=== PATIENT | male | born 1955 | race Caucasian/White ===

== ENCOUNTER 2024-11-02 04:18 | Emergency (ER) | payer MEDICARE, SELFPAY ==
--- NOTE | 2024-11-02 04:31 | CT_ITS ---
PROCEDURE INFORMATION: Exam: CT Abdomen And Pelvis With Contrast Exam date and time: 11/02/2024 5:28 AM Age: 69 years old Clinical indication: Abdominal pain; Additional info: Llq pain TECHNIQUE: Imaging protocol: Computed tomography of the abdomen and pelvis with contrast. Radiation optimization: All CT scans at this facility use at least one of these dose optimization techniques: automated exposure control; mA and/or kV adjustment per patient size (includes targeted exams where dose is matched to clinical indication); or iterative reconstruction. Contrast material: ISOVUE; Contrast volume: 75 ml; Contrast route: IV; COMPARISON: No relevant prior studies available. FINDINGS: Liver: Normal. No mass. Gallbladder and biliary ducts: Normal. No calcified stones. No ductal dilation. Pancreas: Normal. No ductal dilation. Spleen: Normal. No splenomegaly. Adrenal glands: Normal. No mass. Kidneys and ureters: 4 mm stone in the mid left ureter with moderate left-sided hydronephrosis and hydroureter. 3 mm intrarenal stone is noted on the left. Stomach and bowel: Unremarkable. No obstruction. No mucosal thickening. Appendix: No evidence of appendicitis. Intraperitoneal space: Unremarkable. No free air. No significant fluid collection. Vasculature: Unremarkable. No abdominal aortic aneurysm. Lymph nodes: Unremarkable. No enlarged lymph nodes. Urinary bladder: Unremarkable as visualized. Reproductive: Unremarkable as visualized. Bones/joints: Unremarkable. No acute fracture. Soft tissues: Unremarkable. IMPRESSION: 4 mm stone in the mid left ureter with moderate left-sided hydronephrosis and hydroureter. 3 mm intrarenal stone is noted on the left.
[2024-11-02 04:33] VITALS: BP 216/97; PULSE 68; RESP 16; TEMP 36.4; O2SAT 98; BMI 28.2
--- NOTE | 2024-11-02 04:33 | ED_ITS ---
Discharge Plan Disposition Patient Disposition: Home, Self-Care Referrals Follow up/Referrals: Provider,Referral, [Primary Care Provider, Medical] - See instructions Instructions Patient Instructions: DI for Acute Abdominal Pain Discharge ED Provider: Danilo Smith General Adult HPI General Chief complaint: Abdominal Pain Stated complaint: lower L abd pain Time Seen by Provider: 11/02/24 04:20 History of Present Illness HPI narrative: 69-year-old male presents for acute onset severe left-sided lower quadrant abdominal pain. He reports that he felt like he had a little bit of pain in his kidney yesterday. Tonight he had acute severe left lower quadrant pain with associated nausea and vomiting. He has never had any like this before. Related Data Allergies Allergy/AdvReac Type Severity Reaction Status Date / Time No Known Allergies Allergy Verified 11/02/24 04:38 [facility] Disclaimer: The information contained in this section may have been updated after the patient was seen, as this information can be updated by other users. Social History Smoking Status: Never smoker ROS Obtained: Yes All systems reviewed & no additional complaints except as documented Physical Exam General General appearance: alert and in distress Head Head exam: atraumatic and normocephalic Eye Eye exam: Present normal appearance, PERRL and EOMI ENT ENT exam: Present normal oropharynx and normal external ear exam Neck Neck exam: Present normal inspection and full ROM Chest Chest inspection: Present normal inspection and symmetric chest wall rise; Absent tenderness Respiratory Respiratory exam: Present normal lung sounds bilaterally; Absent respiratory distress Cardiovascular Cardiovascular exam: Present regular rate and normal rhythm Abdominal Exam Abdominal exam: Present soft; Absent distention, tenderness or guarding Extremities Exam Extremities exam: Present normal inspection; Absent edema or joint swelling Back Exam Back exam: Present normal inspection; Absent tenderness Neurological Exam Neurological exam: Present alert and oriented X3; Absent motor sensory deficit Psychiatric Psychiatric exam: Present normal affect and normal mood Skin Skin exam: Present warm, dry and normal color Lymphatic Lymphatic Findings: no adenopathy Medical Decision Making Medical Records Medical records reviewed: Yes I reviewed the patient's medical records. Screening: Per USPSTF and CDC recommendations, given the prevalence of disease in our region, it is our hospital?s policy to screen for HIV and viral Hepatitis for all patients aged 18 and over and those with ongoing risk factors. Leonard Inquiry Pt receiving controlled substance: No Leonard was queried for this patient: No Vital Signs: 11/02/24 04:33 11/02/24 05:09 11/02/24 05:20 Temperature 97.6 F Temperature Source Oral Pulse Rate 68 70 Pulse Rate [Right Radial] 68 Respiratory Rate 16 Blood Pressure 176/86 H 167/75 H Blood Pressure [Right Arm] 216/97 H Blood Pressure Mean [Right Arm] 136 Blood Pressure Source [Right Arm] Automatic Cuff Blood Pressure Position [Right Arm] Standing 02 Sat by Pulse Oximetry 98 96 97 Oxygen Delivery Method Room Air Lab Data Lab results reviewed: Yes I reviewed the patient's lab results. Lab Results 11/02/24 04:23: Urine Color Yellow, Urine Appearance Clear, Urine pH 6.0, Ur Specific [place] 1.020, Urine Protein Negative, Urine Glucose (UA) Negative, Urine Ketones Negative, Urine Blood 1+ A, Urine Nitrate Negative, Urine Bilirubin Negative, Urine Urobilinogen 0.2, Ur Leukocyte Esterase Negative, Urine RBC None, Urine WBC None, Ur Squamous Epith Cells None, Urine Bacteria None 11/02/24 04:30: WBC 9.0, RBC 5.07, Hgb 14.5, Hct 44.2, MCV 87.2, MCH 28.6, MCHC 32.8, RDW 13.4, Plt Count 192, MPV 11.9 H, Neut % (Auto) 73.5, Lymph % (Auto) 16.4, [place] % (Auto) 7.7, Eos % (Auto) 1.4, Baso % (Auto) 0.8, Neut # (Auto) 6.6, Lymph # (Auto) 1.5, [place] # (Auto) 0.7, Eos # (Auto) 0.1, Baso # (Auto) 0.1, Sodium 140, Potassium 4.0, Chloride 105, Carbon Dioxide 26, Anion Gap 13.0, BUN 18, Creatinine 1.00, Estimated Creat Clear 101, Estimated GFR 75, Est GFR ( Amer) 90, Glucose 143 H, Calcium 9.1, Total Bilirubin 0.7, AST 28, ALT 17, Alkaline Phosphatase 82, Total Protein 7.2, Albumin 4.6, Globulin 2.6, Albumin/Globulin Ratio 1.8, Lipase 55 11/02/24 04:30 11/02/24 04:30 Orders (Tests/Meds): ED MEDICATIONS Generic Name Dose Route Start Last Admin Trade Name Freq PRN Reason Stop Dose Admin Sodium Chloride 10 ml 11/02/24 05:33 11/02/24 05:34 Sodium Chloride 0.9% 10ml Syr (Rad Only) IV 12/02/24 05:32 10 ml NEEDED PRN Administration Maintain IV Site Discontinued Medications Generic Name Dose Route Start Last Admin Trade Name Freq PRN Reason Stop Dose Admin Iopamidol 75 ml 11/02/24 05:33 11/02/24 05:34 Iopamidol-370 (76%);100ml Bottle IV 11/02/24 05:34 75 ml ONCE ONE Administration Ketorolac Tromethamine 30 mg 11/02/24 04:31 11/02/24 04:42 Ketorolac 30mg/Ml Vial IV 11/02/24 04:32 30 mg ONCE ONE Administration Morphine Sulfate 4 mg 11/02/24 04:31 11/02/24 04:42 Morphine 4mg/Ml Syringe IV 11/02/24 04:32 4 mg ONCE ONE Administration Promethazine HCl 25 mg 11/02/24 04:31 11/02/24 04:42 Promethazine Hcl 25mg/Ml 1ml Vial IV 11/02/24 04:32 25 mg ONCE ONE Administration Sodium Chloride 25 ml 11/02/24 04:31 11/02/24 04:42 Sodium Chloride 0.9% 25ml Bag IV 11/02/24 04:32 25 ml ONCE ONE Administration ORDERS Category Date Time Status CT abdomen pelvis w con Stat Cat Scan 11/02/24 04:31 Taken CBC w/Auto Diff [Complete Blood Count Auto Diff] Stat Lab 11/02/24 04:30 Completed CMP [Comprehensive Metabolic Panel] Stat Lab 11/02/24 04:30 Completed Lipase Stat Lab 11/02/24 04:30 Completed UA [Urinalysis and Microscopic] Stat Lab 11/02/24 04:23 Completed Medical Decision Narrative: 69-year-old male presents with acute left lower quadrant abdominal pain and nausea and vomiting. History was obtained via interactive discussion with patient. On arrival, patient is [afebrile, hemodynamically stable, satting appropriately, alert, oriented x4, GCS 15], moving all extremities spontaneously. Full physical exam performed and significant for actively vomiting patient with left lower quadrant tenderness Differential includes but is not limited to kidney stone, bowel obstruction, perforation, pyelonephritis aortic pathology. Patient was given Phenergan, morphine, Toradol for symptomatic management and correction of underlying abnormalities. Workup initiated including CBC CMP UA CT abdomen pelvis with IV contrast. On re-evaluation, patient [remains afebrile, HD stable.] Laboratory workup independently interpreted by me and significant for no significant leukocytosis, normal renal function, no evidence of urinary tract infection. Imaging independently interpreted by me and significant for 4 mm Stone in the left mid ureter. Associated left-sided hydronephrosis. See radiology read for full review of final results. Given patient history, exam and workup, patient's presentation most likely represents 4 mm stone in the left mid ureter with associated hydronephrosis. Patient was given Flomax and discharged prescription for Flomax, Zofran and oxycodone. Patient encouraged to follow-up with urology. Return precautions given. Procedures Risk/Benefits of Procedure(s) Were Explained: Yes Critical Care Critical Care Time Critical Care Time: No
[2024-11-02 04:38] LABS: Hematocrit 44.2 % (42.0-52.0); Hemoglobin 14.5 g/dL (14.1-18.0); Immature Granulocytes % 0.2 %; Mean Corpuscular HGB Conc 32.8 g/dL (31.8-35.4); Mean Corpuscular Hemoglobin 28.6 pg (27.0-31.2); Mean Corpuscular Volume 87.2 fl (80-94); Nucleated Red Blood Cells % 0 %; Platelet Count 192 K/mm3 (142-424); Red Blood Count 5.07 M/mm3 (4.60-6.20); Red Cell Distribution Width-SD 42.2 fL; White Blood Count 9.0 K/mm3 (4.8-10.8)
[2024-11-02 04:40] LABS: Bilirubin,Urine Negative (Negative); Color,Urine YELLOW (Yellow); Glucose,Urine (UA) Negative (Negative); Ketones,Urine Negative (Negative); Leukocyte Esterase,Urine Negative (Negative); PH,Urine 6.0 (5.0-8.5); Protein,Urine Negative (Negative); Specific Gravity, Urine 1.020 (1.005-1.030); Urobilinogen,Urine 0.2 EU/dl (0.2)
[2024-11-02 04:42] LABS: Albumin Level 4.6 g/dl (3.5-5.0); Chloride 105 mmol/L (98-107); Sodium 140 mmol/L (136-145)
[2024-11-02] MEDS: KETOROLAC 30MG/ML VIAL 30 MG IV (04:42)
[2024-11-02] MEDS: PROMETHAZINE HCL 25MG/ML 1ML VIAL 25 MG IV (04:42)
[2024-11-02] MEDS: SODIUM CHLORIDE 0.9% 25ML BAG 25 ML IV (04:42)
[2024-11-02] MEDS: MORPHINE 4MG/ML SYRINGE 4 MG IV (04:42)
[2024-11-02 04:43] LABS: Potassium 4.0 mmoL/L (3.5-5.1)
[2024-11-02 04:45] LABS: Alanine Aminotransferase 17 U/L (12-78); Albumin/Globulin Ratio 1.8 (1.1-1.8); Alkaline Phosphatase 82 U/L (38-126); Anion Gap 13.0 mEq/L (5-15); Aspartate Amino Transferase 28 U/L (17-59); Bilirubin,Total 0.7 mg/dl (0.2-1.3); Blood Urea Nitrogen 18 mg/dl (9-20); Carbon Dioxide 26 mmol/L (22.0-30.0); Creatinine Clearance Estimated 101 mL/min (50-200); Creatinine,Serum 1.00 mg/dl (0.66-1.25); Estimated Glomerular Filt Rate 75 ml/min (>60); GFR (African American) 90 ML/MIN (>60); Globulin 2.6 g/dL (1.3-3.2); Lipase 55 U/L (23-300); Total Protein,Serum 7.2 g/dl (6.3-8.2)
[2024-11-02 04:46] LABS: Calcium 9.1 mg/dl (8.4-10.2); Glucose 143 mg/dl (74-100)
[2024-11-02 04:56] LABS: Microscopic, Urine URINE MICROSCOPIC (MICROSCOPIC)
[2024-11-02 05:09] VITALS: BP 176/86; PULSE 68; O2SAT 96
[2024-11-02 05:20] VITALS: BP 167/75; PULSE 70; O2SAT 97
[2024-11-02] MEDS: SODIUM CHLORIDE 0.9% 10ML SYR (RAD ONLY) 10 ML IV (05:34)
[2024-11-02] MEDS: IOPAMIDOL-370 (76%);100ML BOTTLE 75 ML IV (05:34)
--- OUTSIDE RECORDS SUMMARY | 2024-11-02 06:08 | XMS_ITS | Clinical Summary ---
Author Organization [facility] Address [address] [place] [address] Care Team Providers Care Concrete Spreader Name Role Phone Pcp, None Selected Primary Care Provider Unavail able Allergies No known active allergies Active Problems Problem Noted Date Diagnosed Date Depressive disorder 01/24/2019 Overview (07/08/2022): Legacy Name: Depression; Chronic obstructive pulmonary disease 05/20/2017 Overview (07/08/2022): Legacy Name: COPD (chronic obstructive pulmonary disease); Attention deficit hyperactivity disorder (ADHD) 06/04/2015 Overview (07/08/2022): Legacy Name: ADD (attention deficit disorder); Anxiety 10/03/2013 Overview (07/08/2022): Legacy Name: Anxiety 11-NOV-2013 09:49:20<$>; Social History Tobacco Use Types Packs/Day Years Used Date Smoking Tobacco: Never Assessed Sex and Gender Information Value Date Recorded Sex Assigned at Not on file Legal Sex Male 2:47 PM PDT Gender Identity Not on file Sexual Orientation Not on file Last Filed Vital Signs Vital Sign Reading Time Taken Comments Blood Pressure 153/68 10/01/2023 1:50 PM PDT Pulse 59 10/01/2023 1:50 PM PDT Temperature 36.4 C (97.5 F) 10/01/2023 1:50 PM PDT Respiratory Rate 16 10/01/2023 1:50 PM PDT Oxygen Saturation 97% 10/01/2023 1:50 PM PDT Inhaled Oxygen Concentration - - Weight 97.5 kg (215 lb) 10/01/2023 1:50 PM PDT Height 188 cm (6' 2 ) 10/01/2023 1:50 PM PDT Body Mass Index 27.6 10/01/2023 1:50 PM PDT Plan of Treatment Health Maintenance Due Date Last Done Comments Medicare Annual Wellness (AWV) 1955 PSA Screening Discussion 1957 Depression Screening (PHQ-9) 1969 Colorectal Cancer Screening (Colonoscopy) 2002 Colorectal Cancer Screening (FOBT) 2002 Colorectal Cancer Screening (Fecal DNA) 2002 Colorectal Cancer Screening Combined 2002 Zoster Vaccines (1 of 2) 2007 IPV Vaccines (2 of 3 - Adult catch-up series) 12/11/2008 11/13/2008 HM Pneumococcal Adult 50+ (2 of 2 - PCV) 12/25/2011 12/24/2010 RSV Patients Over 60 years OR qualifying ( Patients) (1 - Risk 60-74 years 1-dose series) 2017 Fall Risk Screening 2022 DTaP,Tdap,and Td Vaccines (3 - Td or Tdap) 12/16/2022 12/16/2012, 11/30/2009, 11/23/2006, Additional history exists COVID-19 Vaccine ( - season) 2024 Influenza Vaccine (#1) 2024 Hepatitis A Vaccines Aged Out 11/30/2009, 11/14/19 09 No longer eligible based on patient's age to complete this topic HM Pneumococcal Combined Age 0-49 Discontinued 12/24/2010 HPV Vaccines Aged Out No longer eligi ble based on patient's age to complete this topic Hepatitis B Vaccines Aged Out No long er eligible based on patient's age to complete this topic MMR Vaccines Aged Out No longer eligi ble based on patient's age to complete this topic Insurance [employer] Care Teams Concrete Spreader Relationship Specialty Start Date End Date Pcp, None Selected PCP - General 06/09/24
--- OUTSIDE RECORDS SUMMARY | 2024-11-02 06:08 | XMS_ITS | Encounter Summary ---
Author Organization [facility] Address [address] [place] [address] Care Team Providers Care Supervisor Pipe Manufacture Name Role Phone Jarvis Krishna DO Primary Care Provider +1- [phone] Reason for Visit * Reason Comments Med Refill Encounter Details Date Type Department Care Team (Late st Contact Info) Description 09/23/2022 Refill [facility] [place] [address] [place], [place] [id number] [place] [address] [place] [address] Social History Tobacco Use Types Packs/Day Years Used Date Smoking Tobacco: Never Assessed Sex and Gender Information Value Date Recorded Sex Assigned at Not on file Legal Sex Male 6:30 AM PDT Gender Identity Male 09/27/2021 6:30 AM PDT Sexual Orientation Not on file documented as of this encounter Miscellaneous Notes * Telephone Encounter - Zabrina Nathan - 09/25/2022 2:39 PM PDT Scheduled 11/06/2022 for CPE and med check at 12:00, will be self pay * Telephone Encounter - Lay Bae PharmD - 09/25/2022 9:04 AM PDT Call to schedule annual appointment, gap refill sent. * Telephone Encounter - Jami Zafar - 09/25/2022 7:46 AM PDT Images from the original note were not included. PCP: Jarvis Krishna DO NORM Last appt for this indication/med: From PRIMARY CARE PHYSICIAN on: 09/15/19 Pertinent notes from that visit: Hypogonadism & ED previously consulted urology clinic Prior medication; testosterone gel but expensive and switched to injections with good results Additionally has ED; sildanafil has been effective Pertinent Lab History Pertinent Previous refill notes: Pertinent follow up notes: SEEN FOR INDICATION BY OUTSIDE PROVIDER ON: 07/31/22 Last Refills for this med(sildenafil 20): 12/06/20 for quantity of #50 tabs/10 days supply with 11 refills Recent Visits No visits were found meeting these conditions. Showing recent visits within past 540 days with a meds authorizing provider and meeting all other requirements Future Appointments No visits were found meeting these conditions. Showing future appointments within next 150 days with a meds authorizing provider and meeting all other requirements Last seen (if not listed above): 09/03/21 documented in this encounter Plan of Treatment Not on file documented as of this encounter Visit Diagnoses Not on filedocumented in this encounter Care Teams Supervisor Pipe Manufacture Relationship Specialty [place] [address] [address] PCP - General 07/23/11 documented as of this encounter
--- OUTSIDE RECORDS SUMMARY | 2024-11-02 06:08 | XMS_ITS | Clinical Summary ---
Author Organization [facility] [employer] [facility] Address [address] [place] [address] Care Team Providers Care Print Production Associate Name Role Phone Jarvis Krishna DO Primary Care Provider +1- [phone] Allergies No known active allergies Medications citalopram (CELEXA) 20 mg tablet Take 20 mg by mouth Daily. Active LORazepam (ATIVAN) 0.5 mg tablet Take 0.5 mg by mouth every 6 hours as needed. Active Active Problems Problem Noted Date Diagnosed Date Foot pain, right Social History Tobacco Use Types Packs/Day Years Used Date Smoking Tobacco: Former Alcohol Use Standard Drinks/Week Comments Not Asked 0 (1 standard drink = 0.6 oz pur e alcohol) Sex and Gender Information Value Date Recorded Sex Assigned at Not on file Legal Sex Male 3:02 AM PST Gender Identity Not on file Sexual Orientation Not on file Last Filed Vital Signs Vital Sign Reading Time Taken Comments Blood Pressure 154/65 07/27/2012 2:45 PM PDT Pulse 80 07/27/2012 2:30 PM PDT Temperature 36.8 C (98.2 F) 07/27/2012 2:45 PM PDT Respiratory Rate 16 07/27/2012 2:45 PM PDT Oxygen Saturation 97% 07/27/2012 2:25 PM PDT Inhaled Oxygen Concentration - - Weight 93 kg (205 lb 0.4 oz) 07/27/2012 10:57 AM PDT Height 188 cm (6' 2 ) 07/27/2012 10:57 AM PDT Body Mass Index 26.32 07/27/2012 10:57 AM PDT Plan of Treatment Health Maintenance Due Date Last Done Comments CT Colonography 1975 ColoGuard 1975 Colonoscopy 1975 Colorectal Combination Topic 1975 FIT 1975 Sigmoidoscopy 1975 Vaccine: Dtap/Tdap/Td (1 - Tdap) 1976 Vaccine: Pneumococcal 50+ (1 of 1 - PCV) 2007 Vaccine: Zoster (1 of 2) 2007 COVID-19 Vaccine (1 - 4-2 5 season) 2024 Vaccine: Influenza (#1) 2024 Vaccine: RSV Adult (1 - 1-do se 75+ series) 2032 Vaccine: Hepatitis B Adult Aged Out N o longer eligible based on patient's age to complete this topic Vaccine: Hib Aged Out No longer eligi ble based on patient's age to complete this topic Vaccine: Meningococcal B Aged Out No longer eligible based on patient's age to complete this topic Insurance Advance Directives * Full Code (Latest Code Status on File) Date Activated Date Inactivated Comments 07/27/2012 2:05 PM 07/27/2012 5:38 PM Care Teams Print Production Associate Relationship Specialty [place] [address] [address] PCP - General 07/24/12
--- OUTSIDE RECORDS SUMMARY | 2024-11-02 06:08 | XMS_ITS | Referral Summary ---
Author Organization [facility] Address [address] [place] [address] Care Team Providers Care Controller Repairer And Tester Name Role Phone Jarvis Krishna DO Primary Care Provider +1- [phone] Allergies No known active allergies Medications citalopram [...] 07/27/2012 10:57 AM PDT Plan of Treatment Not on file Insurance [id number] Advance Directives * Full Code (Latest Code Status on File) Date Activated Date Inactivated Comments 07/27/2012 2:05 PM 07/27/2012 5:38 PM Care Teams Controller Repairer And Tester Relationship Specialty [place] [address] [place] [address] PCP - General 07/24/12
--- OUTSIDE RECORDS SUMMARY | 2024-11-02 06:08 | XMS_ITS | Encounter Summary ---
Author Organization [facility] Address [address] [facility] [place] [address] Care Team Providers Care Document Analyst Name Role Phone Jarvis Krishna DO Primary Care Provider +1- [phone] Reason for Visit * Reason Onset Date Comments Med Refill 02/18/2023 Encounter Details Date Type Department Care Team (Late st Contact Info) Description [facility] [address] [place] [address] [place] [address] [place] [address] Social History Tobacco Use Types Packs/Day Years Used Date Smoking Tobacco: Never Assessed Sex and Gender Information Value Date Recorded Sex Assigned at Not on file Legal Sex Male 6:30 AM PDT Gender Identity Male 09/27/2021 6:30 AM PDT Sexual Orientation Not on file documented as of this encounter Miscellaneous Notes * Telephone Encounter - Naya Roberson PharmD - 02/18/2023 10:59 PM PST Images from the original note were not included. This refill request has been denied due to: patient overdue for followup. Previously contacted to schedule appt? Yes. No show'd October appt documented in this encounter Plan of Treatment Not on file documented as of this encounter Visit Diagnoses Not on filedocumented in this encounter Care Teams Document Analyst Relationship Specialty [place] [address] [place] [address] PCP - General 07/23/11 documented as of this encounter
--- OUTSIDE RECORDS SUMMARY | 2024-11-02 06:08 | XMS_ITS | Clinical Summary ---
[facility] Address [address] [address] Care Team Providers Care Certified Technician Name Role Phone Jarvis Krishna DO Primary Care Provider [phone] Allergies No known active allergies Medications Aspirin 325 MG capsule aspirin - 325 mg, Oral, DAILY, 0 Refill(s) Active sildenafil (Revatio) 20 MG tabletIndication s:Erectile dysfunction, unspecified erectile dysfunction type Take 1-5 tablets (20-100 mg) by mouth if needed each day for erectile dysfunction. 50 tablet 3 4 Active atorvastatin (Lipitor) 10 MG tabletIndication s:Dyslipidemia, goal LDL below 70 Take 1 tablet (10 mg) by mouth once daily. 30 tablet 5 4 Active Active Problems Problem Noted Date Diagnosed Date Depressive disorder 01/24/2019 Overview (10/13/2021): Legacy Name: Depression; ED (erectile dysfunction) 11-NOV-2013 09:45:51< $> 01/24/2019 Overview (10/13/2021): Legacy Name: ED (erectile dysfunction) 11-NOV-2013 09:45:51<$>; Epistaxis 08/03/2017 Overview (10/13/2021): Legacy Name: Bleeding nose; Chronic obstructive pulmonary disease 05/20/2017 Overview (10/13/2021): Legacy Name: COPD (chronic obstructive pulmonary disease); Knee pain 11/14/2016 Overview (10/13/2021): Legacy Name: Knee pain; Attention deficit hyperactivity disorder (ADHD) 06/04/2015 Overview (10/13/2021): Legacy Name: ADD (attention deficit disorder); History of tobacco use 04/19/2014 Overview (10/13/2021): Legacy Name: History of tobacco use; Solitary pulmonary nodule 04/19/2014 Overview (10/13/2021): Legacy Name: Solitary pulmonary nodule; Former smoker 12/13/2013 Overview (10/13/2021): Legacy Name: Former smoker; Abnormal computed tomography scan 10/14/2013 Overview (10/13/2021): Legacy Name: Abnormal CT scan of lung; Anxiety 10/03/2013 Overview (10/13/2021): Legacy Name: Anxiety 11-NOV-2013 09:49:20<$>; Shortness of breath 10/03/2013 Overview (10/13/2021): Legacy Name: SOB (shortness of breath) 11-NOV-2013 09:45:51<$>; Immunizations Immunization Administration Dates Next Due Hep A, Adult 11/30/2009,11/13/2008 IPV 11/13/2008 Pneumococcal Polysaccharide PPSV23 12/24/2010 Td (adult) 11/23/2006,09/23/1994 Td (adult), 5 Lf tetanus tox oid, preservative free, adsorbed 11/23/2006,09/23/1994 Tdap 12/16/2012,11/30/2009 Typhoid, oral 11/13/2008 Social History Tobacco Use Types Packs/Day Years Used Date Smoking Tobacco: Never Assessed PHQ-2 Answer Date Recorded Patient Health Questionnaire-2 Score 0 06/08/2023 Sex and Gender Information Value Date Recorded Sex Assigned at Not on file Legal Sex Male 6:30 AM PDT Gender Identity Male 09/27/2021 6:30 AM PDT Sexual Orientation Not on file Last Filed Vital Signs Vital Sign Reading Time Taken Comments Blood Pressure 124/70 06/08/2023 8:14 AM PDT Pulse 61 06/08/2023 8:14 AM PDT Temperature - - Respiratory Rate 18 06/08/2023 8:14 AM PDT Oxygen Saturation 99% 06/08/2023 8:14 AM PDT Inhaled Oxygen Concentration - - Weight 99.8 kg (220 lb) 06/08/2023 8:14 AM PDT Height 188 cm (6' 2 ) 09/03/2021 3:23 PM PDT Body Mass Index 28.25 09/03/2021 3:23 PM PDT Plan of Treatment Health Maintenance Due Date Last Done Comments Anoscopy 1957 CT Colonography 1957 FIT 1957 FOBT 1957 Medicare Annual Wellness (AWV) 1957 Sigmoidoscopy 1957 Hepatitis C Screening 1975 Adult Depression Screening 1976 Zoster Vaccines (1 of 2) 2007 Pneumococcal Vaccine: 50+ Years (2 of 2 - PCV) 12/25/2011 12/24/2010 RSV: At-Risk Patients (60+ Years) and Gestational Age of 32-36 Weeks for Patients (1 - Risk 60-74 years 1-dose series) 2017 Colonoscopy 09/20/2022 09/20/2012 DTaP/Tdap/Td Vaccines (5 - Td or Tdap) 12/16/2022 12/16/2012, 11/30/2009, 11/23/2006, Additional history exists COVID-19 Vaccine ( - season) 2024 Influenza Vaccine (#1) 2024 Colorectal Cancer Screening 09/22/2026 FIT-DNA 09/22/2026 09/23/2023 Lipid Panel 06/07/2028 06/08/2023, 08/23, 12/05/2020 Hepatitis A Vaccines Aged Out 11/30/2009, 11/14/19 09 No longer eligible based on patient's age to complete this topic Hepatitis B Vaccines Aged Out No long er eligible based on patient's age to complete this topic Meningococcal Vaccine Aged Out No charline lynette eligible based on patient's age to complete this topic RSV: Pediatric Patients Age 0-20 months Aged Out No longer eligible based on patient's age to complete this topic Procedures Procedure Name Priority Date/Time Associated Diagnosis Comments COLOGUARD - SCANNED 09/23/2023 LIPID PANEL Routine 06/08/2023 8:47 AM PDT Screening cholesterol level HM COLONOSCOPY Routine 09/20/2012 4:00 PM PDT from Last 3 Months or Most Recently Relevant to Health Maintenance Results * COLOGUARD - SCANNED (09/23/2023) Narrative 09/23/2023 Ordered by an unspecified provider. us Provider Onbase MD LAB MOLECULAR DIAGNOSTICS ORD ERABLES Final Result * (ABNORMAL) Lipid panel (06/08/2023 8:47 AM PDT) Triglycerides 39(L) 40 - 149 mg/dL 06/08/2023 3:11 PM PDT [facility] Cholesterol 141 0 - 199 mg/dL 06/08/2023 3:11 PM PDT [facility] [place] HDL 62.0 40 - 59 mg/dL 06/08/2023 3:11 PM PDT [facility] LDL Calculated 71 <=129 mg/dL 06/08/2023 3:11 PM PDT [facility] Non HDL Chol. 79 mg/dL 06/08/2023 3:11 PM PDT [facility] CH/HD 2.27 0.00 - 4.97 06/08/2023 3:11 PM PDT [facility] Fasting? Unknown 06/08/2023 3:11 PM PDT [facility] Blood Venous blood specimen / Unknown Venipuncture / Unknown 06/08/2023 8:47 AM PDT 06/08/2023 8:47 AM PDT Narrative [facility] - 06/08/2023 3:11 PM PDT INTERPRETIVE DATA: Cholesterol levels are considered: Desirable if <200 mg/dl Borderline high if 200-239 mg/dl High if >240 mg/dl Jarvis Krishna DO LAB BLOOD ORDERABLES Final Result [facility] [id number] [place] [address], * Hm Colonoscopy (09/20/2012 4:00 PM PDT) 09/20/2012 4:00 PM PDT Narrative [facility] - 09/20/2012 4:00 PM PDT Imported 20:20 Mobile Quality Measure Data - Colonoscopy Exam Description Colonoscopy us User [employer] Final Result [facility] from Last 3 Months or Most Recently Relevant to Health Maintenance Insurance MEDICARE PART A MEDICARE PART A AND B Care Teams Certified Technician Relationship Specialty [place] [id number] [place] [address] [facility] - General 07/23/11
[2024-11-02] MEDS: TAMSULOSIN 0.4MG CAPSULE 0.4 MG PO (06:09)
[2024-11-02 06:15] VITALS: BP 175/84; PULSE 69; O2SAT 98
[2024-11-02 06:18] VITALS: BP 168/74; PULSE 80; RESP 16; TEMP 36.3; O2SAT 98
== END 2024-11-02 06:23 | disposition home or self-care (01) ==
LOC: ER 06:05
PROVIDERS: Emergency Provider Emergency Medicine
DX: N13.2 Hydronephrosis with renal and ureteral calculous obstruction (principal); N13.4 Hydroureter; R10.32 Left lower quadrant pain
CPT/HCPCS: 74177; 80053; 81001; 83690; 85025; 96374; 96375; 99285; J1885; J2270; J2550; Q9967